=== PATIENT | female | born 1980 ===

== ENCOUNTER 2018-06-19 17:16 | Emergency (ER) | payer BC, OTHER ==
[2018-06-19 17:54] VITALS: BP 146/93; PULSE 68; RESP 16; TEMP 98.4; O2SAT 100
== END 2018-06-19 19:01 | disposition home or self-care (01) ==
LOC: ED 17:16
DX: K04.01 Reversible pulpitis (principal); K02.9 Dental caries, unspecified
CPT/HCPCS: 99282